=== PATIENT | female | born 1985 | race Caucasian/White ===

== ENCOUNTER 2017-03-23 21:01 | Emergency (ER) | payer MEDICAID ==
[2017-03-23] MEDS ORDERED: LORazepam 1 MG TAB PO ONE (22:00)
[2017-03-23 22:03] LABS: % IMMATURE GRANULYOCYTES 0.3 % (0.0-1.1); ABSOLUTE IMMATURE GRANULOCYTES 0.02 10^3/uL (0.00-0.10); ADD DIFF? NO; ADD MORPH? NO; ADD SCAN? NO; ATYPICAL LYMPHOCYTE FLAG 0 (0-99); FRAGMENT RBC FLAG 0 (0-99); HEMOGLOBIN 13.8 g/dL (12.6-16.3); LEFT SHIFT FLG 0 (0-99); LIPEMIA HEMOLYSIS FLAG 90 (0-99); MEAN CELL HEMOGLOBIN 31.9 pg (27.9-34.1); MEAN CELL HEMOGLOBIN CONCENTR. 35.4 g/dL (32.4-36.7); MEAN CELL VOLUME 90.3 fL (81.5-99.8); MEAN PLATELET VOLUME 10.9 fL (8.7-11.7); PLATELET CLUMPS FLAG 0 (0-99); PLATELET COUNT 269 10^3/uL (150-400); RED BLOOD CELL COUNT 4.32 10^6/uL (4.18-5.33); RED CELL DISTRIBUTION WIDTH 11.9 % (11.5-15.2)
--- NOTE | 2017-03-23 22:05 | EDPHY ---
H & P Stated Complaint: LIMITED UE MOTOR FUNCTION Time Seen by Provider: 03/23/17 21:06 HPI/ROS: CHIEF COMPLAINT: Can't move bilateral arms History by patient HISTORY OF PRESENT ILLNESS: 31-year-old woman with a history of postural orthostatic tachycardia and bipolar disease is brought in by her parents because of inability to move both arms and having difficulty speaking. The symptoms began about 20 minutes prior to arrival. Patient has had several prior episodes like this, the 1st 1 was 1 year ago, but this is 1st time she sought medical attention. These episodes can last anywhere from 10-20 minutes. She does not identify any specific triggers. She has had 3 episodes tonight which began when she was just sitting around. She said she had an episode 2 weeks ago after she over exerted herself by having to awake in the house which she was have sitting as well as move her luggage and boxes out of the house. She says subsequently she has felt more tired than she would expect to be but that she has chronic fatigue, chronic dizziness and weakness due to her postural orthostatic tachycardia. She denies any recent change in any of her medications or doses. She says that she did feel more tired than usual today and felt like the Adderall was not working. Her parents gave her Xanax when the symptoms began tonight but that was not different than her usual dose. She denies any change in vision but states that generally her eyes have been more blurry than usual but she just got new glasses. She denies any double vision. She also says she has some difficulty speaking when this occurs but denies trouble swallowing. She says she feels frustrated by this. Symptoms are more prominent in her upper extremities and associated with weakness but not numbness. She denies any bowel or bladder incontinence. She denies any associated pain. She denies any recent traumatic events either physical or emotional. She denies any new psychosocial stressors. Patient is followed by a plan rep for her postural orthostatic tachycardia at [facility], has a primary care physician, I therapist and a psychiatrist. Patient denies any marijuana or other street drug use. She uses occasional alcohol but says she has not been drinking recently. REVIEW OF SYSTEMS: As in HPI, and all other systems reviewed and are negative Source: Patient, Family - Personal History LMP (Females 10-55): IUD In Place Current Tetanus/Diphtheria Vaccine: Unsure - Medical/Surgical History Hx Asthma: No Hx Chronic Respiratory Disease: No Hx Diabetes: No Hx Renal Disease: No Hx Cirrhosis: No Hx Alcoholism: No Hx HIV/AIDS: No Hx Splenectomy or Spleen Trauma: No Other PMH: postural orthostatic tachycardia syndrome. Leep procedure - Social History Smoking Status: Never smoked - Physical Exam Exam: General Appearance: Alert, tearful, halting speech. Eyes: Pupils equal and round no pallor or injection. ENT, Mouth: Mucous membranes moist. Oropharynx clear, Neck: Supple with full range of motion, no meningismus Respiratory: Normal, effort, lungs are clear to auscultation. No wheezes, rales or rhonchi. Cardiovascular: Regular rate and rhythm. S1, S2, no murmurs, gallops or rubs appreciated Gastrointestinal: Abdomen is soft and nontender, no masses, bowel sounds normal. Back: No CVA tenderness, no bony tenderness Neurological: Awake, alert and oriented x 3, cranial nerves 2-12 are intact, no pronator drift, normal gait, no pronator drift, patient can swallow and speak without difficulty, DTRs are 2+ and equal bilaterally in the upper and lower extremities, sensations intact throughout Skin: Warm and dry, no rashes. Musculoskeletal: No deformities or tenderness. Extremitie:s full range of motion, no edema Psychiatric: Patient has tearful affect, there is no agitation. Constitutional: Initial Vital Signs Temperature (C) 37.0 C 03/23/17 21:05 Heart Rate 65 03/23/17 21:05 Respiratory Rate 16 03/23/17 21:05 Blood Pressure 138/92 H 03/23/17 21:05 O2 Sat (%) 99 03/23/17 21:05 O2 Delivery Mode Room Air Allergies/Adverse Reactions: bupropion HCl [From Wellbutrin] Allergy (Verified 03/23/17 21:20) Home Medications: Medication Instructions Recorded ALPRAZOLAM [Niravam 0.25mg] 0.25 mg PO PRN 06/21/11 CHOLECALCIFEROL [Vitamin D] 400 unit PO 06/21/11 Ubidecarenone [Co Q-10] 100 mg PO 06/21/11 Lunesta 02/27/14 Methylphenidate 02/27/14 Nadolol 02/27/14 [place] 3 1,000 mg Softgel 02/27/14 Ondansetron Odt [Zofran Odt 4 mg 4 mg PO Q4 PRN #6 tab 02/27/14 (RX)] Lexapro 03/23/17 Medical Decision Making ED Course/Re-evaluation: While I was initially interviewing the patient she said that she could move her fingers and as the interview progressed and exam progressed she was unable to sit up on her own and move all her extremities without any difficulty. Given that her symptoms are bilateral and affect the upper but not the lower extremities thinks it is very unlikely to be any kind of central nervous system problem and there is no indication for acute imaging at this time. Patient was given reassurance that this is not a stroke or brain tumor. There is no evidence of hyperreflexia or clonus or muscle rigidity suggestive of serotonin syndrome or other medication related problem. Patient's blood glucose was within normal limits as was her sodium. Patient was concerned that her sodium might be low. CBC was also within normal limits which patient had requested they do because of an elevated white blood cell count in the past few months ago. Patient was given reassurance all her blood work was normal as well. Because of the patient's symptoms are unclear, although this may be an anxiety reaction. I discussed this with the patient and her family. She did feel somewhat improved after a dose of Ativan. I am recommending follow up with her primary care physician, her psychiatrist and follow-up with neurologist for further evaluation of these unusual neurologic symptoms.. - Data Points Laboratory Results: Laboratory Results 03/23/17 21:50 03/23/17 21:50 03/23/17 03/23/17 21:50 21:50 WBC 7.62 10^3/uL 10^3/uL (3.80-9.50) RBC 4.32 10^6/uL 10^6/uL (4.18-5.33) Hgb 13.8 g/dL g/dL (12.6-16.3) Hct 39.0 % % (38.0-47.0) MCV 90.3 fL fL (81.5-99.8) MCH 31.9 pg pg (27.9-34.1) MCHC 35.4 g/dL g/dL (32.4-36.7) RDW 11.9 % % (11.5-15.2) Plt Count 269 10^3/uL 10^3/uL (150-400) MPV 10.9 fL fL (8.7-11.7) Neut % (Auto) 58.9 % % (39.3-74.2) Lymph % (Auto) 32.4 % % (15.0-45.0) [place] % (Auto) 6.4 % % (4.5-13.0) Eos % (Auto) 1.6 % % (0.6-7.6) Baso % (Auto) 0.4 % % (0.3-1.7) Nucleat RBC Rel Count 0.0 % % (0.0-0.2) Absolute Neuts (auto) 4.49 10^3/uL 10^3/uL (1.70-6.50) Absolute Lymphs (auto) 2.47 10^3/uL 10^3/uL (1.00-3.00) Absolute Monos (auto) 0.49 10^3/uL 10^3/uL (0.30-0.80) Absolute Eos (auto) 0.12 10^3/uL 10^3/uL (0.03-0.40) Absolute Basos (auto) 0.03 10^3/uL 10^3/uL (0.02-0.10) Absolute Nucleated RBC 0.00 10^3/uL 10^3/uL (0-0.01) Immature Gran % 0.3 % % (0.0-1.1) Immature Gran # 0.02 10^3/uL 10^3/uL (0.00-0.10) Sodium 141 mEq/L mEq/L (134-144) Potassium 4.7 mEq/L mEq/L (3.5-5.2) Chloride 102 mEq/L mEq/L (97-110) Carbon Dioxide 29 mEq/l mEq/l (22-31) Anion Gap 10 mEq/L mEq/L (8-16) BUN 11 mg/dL mg/dL (7-23) Creatinine 0.8 mg/dL mg/dL (0.6-1.0) Estimated GFR > 60 Glucose 84 mg/dL mg/dL (70-100) Calcium 9.6 mg/dL mg/dL (8.5-10.4) Medications Given: Discontinued Medications Lorazepam (Ativan) 1 mg PO EDNOW ONE Stop: 03/23/17 22:01 Last Admin: 03/23/17 22:03 Dose: 1 mg Departure - Departure Disposition: Home, Routine, Self-Care Clinical Impression: Bilateral arm weakness Condition: Good Instructions: Weakness (ED) Additional Instructions: You were seen by Dr. Trish Hubbard today. Your exam and blood work were all normal today. Your symptoms are not consistent with a stroke, TIA or brain tumor. The cause of your symptoms are unclear. This may be an anxiety reaction. I recommend follow up with your primary care physician, your psychiatrist and consider follow-up with a neurologist. We have given you the phone number of a few Neurology groups. Return for any worsening or new concerns. Referrals: Valentine Javier MD [Primary Care Provider] - As per Instructions Tiffanie Keller MD [Medical Doctor] - As per Instructions Tremaine Daniel MD [Medical Doctor] - As per Instructions Damir Darnell MD [Medical Doctor] - As per Instructions
[2017-03-23 22:13] LABS: ANION GAP 10 mEq/L (8-16); CALCIUM 9.6 mg/dL (8.5-10.4); CARBON DIOXIDE 29 mEq/l (22-31); CHLORIDE 102 mEq/L (97-110); CREATININE 0.8 mg/dL (0.6-1.0); GLOMERULAR FILTRATION RATE > 60; GLUCOSE 84 mg/dL (70-100); POTASSIUM 4.7 mEq/L (3.5-5.2); SODIUM 141 mEq/L (134-144)
[2017-03-23 22:30] VITALS: BP 110/76; PULSE 59; RESP 14; TEMP 97.9; O2SAT 98
== END 2017-03-23 22:30 | disposition home or self-care (01) ==
LOC: CED 21:01
DX: M62.81 Muscle weakness (generalized) (principal)
CPT/HCPCS: 80048-PO; 85025-PO

== ENCOUNTER → 2017-04-22 | Outpatient (CLI) | payer MEDICAID | LOC: FIMAGING 07:57 | PROVIDERS: ATTEND Psychiatry & Neurology Neurology | DX: M50.922 Unspecified cervical disc disorder at C5-C6 level (principal); M50.923 Unspecified cervical disc disorder at C6-C7 level ==